=== PATIENT | male | born 1975 | race Caucasian/White ===

== ENCOUNTER 2019-09-19 01:36 | Emergency (ER) | payer OTHER ==
[~2019-09-19] VITALS: Ht 180.3 cm; Wt 88.5 kg
[2019-09-19 02:01] LABS: ABSOLUTE BASOPHILS 0.1 thou/uL (0.0-0.2); ABSOLUTE EOSINOPHILS 0.1 thou/uL (0.0-0.7); ABSOLUTE LYMPHOCYTES 3.4 thou/uL (0.8-5.3); ABSOLUTE MONOCYTES 0.8 thou/uL (0.0-1.2); ABSOLUTE NEUTROPHILS 4.2 thou/uL (1.6-8.1); BASOPHILS 0.8 %; EOSINOPHILS 1.3 %; HEMATOCRIT 43.3 % (42.0-52.0); HEMOGLOBIN 15.4 gm/dL (14.0-18.0); LYMPHOCYTES 39.8 %; MCH 32.4 pg (26.0-34.0); MCHC 35.5 g/dL (28.0-37.0); MCV 91.5 fL (80.0-100.0); MONOCYTES 9.1 %; MPV 7.8 fl. (7.2-11.1); NUCLEATED RBCS 0 /100WBC; PLATELET COUNT* 242 thou/uL (150-400); RBC 4.74 mil/uL (4.50-6.00); RDW-CV 13.1 % (10.5-14.5); WBC 8.6 thou/uL (4.0-11.0)
[2019-09-19 02:04] LABS: PROTIME 10.5 Seconds (9.20-11.50)
[2019-09-19 02:06] LABS: CALCIUM 8.1 mg/dL (8.5-10.1); CREATININE 1.4 mg/dL (0.6-1.3); POTASSIUM 3.1 mmol/L (3.5-5.1)
[2019-09-19 02:17] LABS: TOTAL BILIRUBIN 0.8 mg/dL (<0.1-1.0); TOTAL PROTEIN 7.8 g/dL (6.4-8.2)
[2019-09-19 03:17] LABS: URINE BILIRUBIN NEGATIVE (Negative); URINE BLOOD TRACE (Negative); URINE CLARITY CLEAR; URINE COLOR YELLOW; URINE GLUCOSE-RANDOM NEGATIVE (Negative); URINE KETONES NEGATIVE (Negative); URINE LEUKOCYTES-REFLEX NEGATIVE (Negative); URINE NITRITE-REFLEX NEGATIVE (Negative); URINE PROTEIN NEGATIVE (Negative); URINE SPECIFIC GRAVITY 1.015 (1.005-1.030); URINE UROBILINOGEN 0.2 E.U./dl (0.2-1.0)
[2019-09-19 05:07] VITALS: BP 133/81
--- NOTE | 2019-09-19 08:50 | EKG ---
[place] [address] ELECTROCARDIOGRAM REPORT Name: SALLY VAZQUEZ 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 09/19/19 0849 0437 0437 Steven Chong MD, FACC /EPI
--- NOTE | 2019-09-19 13:12 | EKG ---
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: : 1975 Requested By: Sis Marie Order Number: [id number] Reading MD: Steven Chong Measurements Intervals [place] Rate: 99 P: 23 RI: 202 QRS: 71 QRSD: 114 T: -10 QT: 367 QTc: 471 Interpretive Statements Sinus rhythm Borderline prolonged RI interval Borderline intraventricular conduction delay Borderline repol abnrm, inferolateral leads No previous ECG available for comparison Electronically Signed On 09-19-2019 13:12:35 CDT by Steven Chong [email or web address] <ELECTRONICALLY SIGNED> By: Steven Chong MD, [facility] 09/19/19 1312 0140 0140 Steven Chong MD, [facility] /EPI
== END 2019-09-19 05:09 | disposition home or self-care (01) ==
LOC: M.ERS 01:36
PROVIDERS: Emergency Medicine
DX: R07.89 Other chest pain (principal); R42 Dizziness and giddiness